=== PATIENT | female | born 1990 | race Caucasian/White ===

== ENCOUNTER 2017-05-18 10:50 | Emergency (ER) | payer BC ==
[~2017-05-18] VITALS: Ht 177.8 cm; Wt 72.6 kg
--- NOTE | ~2017-05-18 | CR127 ---
[facility] A Service of [facility] & [facility] RADIOLOGY TEXT RESULTS PATIENT: KHARI BLANTON LOCATION: [facility] : 88 UNIT #: [id number] AGE: [address]: January Sargent APRN SEX: F ORDER DR: [id number] [facility] [address] [place], [place] [address] [id number] E MR#: [id number] Acc #: [id number] NAME: KHARI BLANTON : 1990 SEX: F STUDY DATE/TIME: 05/18/2017 11:38 UNIT: [facility] ROOM: STUDY DESCRIPTION: CR Foot Complete Min 3 View Rt Attending Physician: January Sargent A.P.R.N. Ordering Physician: Ed Doctor [id number] [facility] Primary Care Physician: Mina Branch M.D. MEDICAL IMAGING REPORT This report is preliminary unless electronic signature is present EXAM Right foot 3 views, 05/18/2017 11:38 hours HISTORY 26-year-old woman complaining of right metatarsal pain for 1 day after jumping on trampoline yesterday. COMPARISON None FINDINGS AP, lateral and oblique views demonstrate overall normal bone density. There is no soft tissue swelling or fracture. IMPRESSION Negative right foot. Dictated by... Shital Lloyd M.D. THIS IS AN ELECTRONICALLY VERIFIED REPORT Shital Lloyd M.D. at 05/18/2017 2:31 PM Sharif TD: 05/18/2017 12:56 JOB #: [id number] MEDICAL IMAGING REPORT Page 1 of 1 COPY
== END 2017-05-18 12:15 | disposition home or self-care (01) ==
LOC: CFTX 10:50 → CED 10:50 → CFTX 11:56
DX: S93.621A Sprain of tarsometatarsal ligament of right foot, initial encounter (principal); F32.9 Major depressive disorder, single episode, unspecified; W17.89XA Other fall from one level to another, initial encounter
CPT/HCPCS: 29405; 73630; 99283